=== PATIENT | female | born 1950 | race Caucasian/White ===

== ENCOUNTER → 2017-10-17 | Outpatient (CLI) | payer OTHER ==
[~2017-10-17] MED LIST: BOTOX100 UNITS IJ; CRESTOR20 MG PO; EFFEXOR XR150 MG PO; FISH OIL 1,2001 EAC4 PO; LO-DOSE ASPIRIN81 M2 PO; LOSARTAN POTAS100 MG PO; OSTEO BI-FLEX1 EAC2 PO; REQUIP1 MG PO; REQUIP2 MG PO; TOPROL XL50 MG PO
== END | disposition home or self-care (01) ==
LOC: OPR 08:33 → EDSTATUS 09:00
PROC: 0TB03ZX Excision of Right Kidney, Percutaneous Approach, Diagnostic (ICD-10-PCS; principal; 2017-10-17)
DX: R80.9 Proteinuria, unspecified (principal); R31.29 Other microscopic hematuria; E00-E89 Endocrine, nutritional and metabolic diseases; E66.01 Morbid (severe) obesity due to excess calories; I12.9 Hypertensive chronic kidney disease with stage 1 through stage 4 chronic kidney disease, or unspecified chronic kidney disease; N18.3 Chronic kidney disease, stage 3 (moderate); E78.5 Hyperlipidemia, unspecified; G47.30 Sleep apnea, unspecified; Z79.82 Long term (current) use of aspirin; Z68.39 Body mass index [BMI] 39.0-39.9, adult
CPT/HCPCS: 71010; 77012; 88305; 88313 90; 88346 90; 88348 90; J3010

== ENCOUNTER → 2017-12-19 | Outpatient (CLI) | payer OTHER ==
[2017-12-19 08:39] LABS: HEMATOCRIT 35.1 % (36.0-46.0); MCH 29.2 PG (29.0-34.0); MCHC 31.3 G/DL (30.0-36.0); MCV 93.1 FL (83-99); PLATELET COUNT 271 K/uL (156-360); RBC DIS.WIDTH-CV 13.5 % (11.8-14.6); RED BLOOD COUNT 3.77 M/uL (3.80-5.20); WHITE BLOOD COUNT 9.7 K/uL (4.1-10.2)
[2017-12-19 08:57] LABS: INTER. NORMALIZED RATIO 0.9
[2017-12-19 09:00] LABS: PTT 29.7 SEC (25-37)
== END | disposition home or self-care (01) ==
LOC: OPR 11-11 09:00 → EDSTATUS 08:00 → OPR 08:00
PROVIDERS: Internal Medicine Nephrology
PROC: 0TB13ZX Excision of Left Kidney, Percutaneous Approach, Diagnostic (ICD-10-PCS; principal; 2017-12-19)
DX: R80.9 Proteinuria, unspecified (principal); R31.9 Hematuria, unspecified
CPT/HCPCS: 77012; 85027; 85610; 85730; 88305; 88313 90; 88346 90; 88348 90; J3010